=== PATIENT | female | born 2005 ===

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

== ENCOUNTER 2025-02-08 15:51 | Emergency (ER) | payer MEDICAID, SELFPAY ==
--- NOTE | ~2025-02-08 | XR_ITS ---
EXAMINATION: XR CHEST CLINICAL INFORMATION: chest pain, choking episodes COMPARISON: None available. TECHNIQUE: 2 views of the chest were obtained. FINDINGS: No significant abnormality is noted involving the heart, lungs, mediastinum, bony thorax or soft tissues. XR/XR chest 2V IMPRESSION: No acute disease Electronically signed by: Isidoro Kraus MD 02/08/2025 04:49 PM EDT RP
[2025-02-08 16:15] VITALS: BP 108/63; PULSE 89; RESP 16; TEMP 36.2; O2SAT 99; BMI 19.7
--- NOTE | 2025-02-08 16:17 | ED.GENADULT ---
[facility] - General Adult General Chief complaint: Chest Pain Stated complaint: Dizziness, sent from urgent care Time Seen by Provider: 02/08/25 19:14 Source: patient Mode of arrival: ambulatory Limitations: no limitations History of Present Illness ED Provider: Dr. Florez [facility] narrative: This is a 13-year-old female presented hospital today for evaluation of episode of facial numbness and choking on her saliva this previous week. She then began to have chest pain at work. We will dizziness and vertiginous symptoms. Denies any nausea or vomiting denies any recent illness denies any vomiting or diarrhea. Denies any coughing. Patient stated that she was at work today where they sent her to urgent care and urgent care sent her here for evaluation. Related Data Home Medications ?Medication ?Instructions ?Recorded ?Confirmed No Known Home Meds 04/30/24 04/30/24 Allergies Allergy/AdvReac Type Severity Reaction Status Date / Time No Known Allergies (No Known Allergy Verified 02/08/25 16:19 Allergies*) Review of Systems Review of Systems: Pertinent review of systems as mentioned in [facility]. All other system otherwise negative. 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 Bilateral sensation intact bilaterally, strength intact bilaterally, no sign of ataxia on [id number]. Skin: Warm and dry Psychiatric: Appropriate mood and thoughts Vital Signs: Vital Signs - 24 hr 02/08/25 16:15 Temperature 97.1 F Pulse Rate 89 Respiratory Rate 16 Blood Pressure 108/63 Pulse Oximetry 99 Oxygen Delivery Method Room Air BMI result Body Mass Index 19.7 Course Course Course Narrative: Rapid medical examination performed in triage by Li Benitez PA-C. Patient is a 19 year old assigned female at presenting to the emergency department after episodes of choking. Patient states that she has woken up twice in the last 1 week with choking and facial numbness. Detailed physical exam and review of systems are deferred to the orthotic/prosthetic clinician. EKG and labs ordered. Patient placed back in the waiting room pending room availability and results. Medical Decision Making Medical Decision Making [facility] Narrative: This is a 19-year-old female presented hospital today for episodes of facial numbness choking on saliva and chest pain. Patient has NIH score of 0. Do not think this is a stroke. I did discuss with the patient on further workup for D-dimer and perhaps treating her with some GI cocktail to see if her chest pain is from a GI source. However patient has kindly refused and risk score has been to be discharged. Review patient's EKG no sign of STEMI. Patient's troponin is negative. Chest x-ray is unremarkable. Patient has low heart score. Low risk chest pain. Patient will be discharged. Work note will be provided. Differential Diagnosis Differential Diagnoses: The differential diagnosis associated with the presentation includes Gastritis, PE, ACS, CAD, STEMI Lab Data [facility] Lab Attestation statement: I reviewed the patient's lab results. 02/08/25 16:35 02/08/25 16:35 Labs: Lab Results 02/08/25 Range/Units 16:35 WBC 8.1 (4.8-10.8) X10*3/uL RBC 4.36 (4.20-5.50) X10*6/uL Hgb 13.9 (12.0-16.0) g/dl Hct 39.8 (37.0-47.0) % MCV 91.3 (80.0-98.0) fL MCH 31.9 (27.0-33.0) pg MCHC 34.9 (31.0-35.0) g/dl RDW 13.5 (11.0-16.0) % Plt Count 299 (160-400) X10*3/uL MPV 8.1 L (9.4-12.3) fL Immature Gran % (Auto) 0.1 (0.0-0.4) % Neut % (Auto) 52.7 (45-73) % Lymph % (Auto) 34.7 (20-40) % Piute % (Auto) 8.3 (2-11) % Eos % (Auto) 4.0 (0-4) % Baso % (Auto) 0.2 (0-2) % Lymph # (Auto) 2.8 (1.2-4.9) X10*3/uL Piute # (Auto) 0.7 (0.1-1.2) X10*3/uL Eos # (Auto) 0.3 (0.0-0.4) X10*3/uL Baso # (Auto) 0.0 (0.0-0.2) X10*3/uL Abs Immat Gran (auto) 0.01 (0.00-0.03) X10*3/uL Absolute Neuts (auto) 4.2 (2.0-8.3) x10*3/uL Absolute Nucleated RBC 0.000 (0.0-0.012) X10*3/uL Nucleated RBC % (auto) 0.0 (0.0-0.2) /100WBC Sodium 140 (135-145) mmol/L Potassium 3.7 (3.3-5.1) mmol/L Chloride 105 (96-108) mmol/L Carbon Dioxide 25 (22-29) mmol/L Anion Gap 14 (12-20) BUN 13 (9-16) mg/dL Creatinine 0.80 (0.5-1.4) mg/dL Estim Creat Clear Calc 84.2 Estimated GFR > 60 Random Glucose 99 (60-115) mg/dL Calcium 9.6 D (8.4-10.2) mg/dL Magnesium 2.1 (1.6-2.6) mg/dL Total Bilirubin 0.9 (0.0-1.0) mg/dL AST 22 (5-31) U/L ALT 16 (0-31) U/L Alkaline Phosphatase 54 (39-117) U/L Troponin I High Sens < 2.7 (<3.5-17.0) ng/L Total Protein 7.9 (6.5-8.0) g/dL Albumin 4.8 (3.5-5.0) g/dL Beta HCG, Quant < 2 mIU/mL Independent Interpretation I performed an independent interpretation of an: EKG and Plain X-Ray Radiology Impression Discussion of test interpretation with radiology: I have reviewed the radiologist's reading. Discharge Plan Discharge Clinical Impression: Atypical chest pain Patient Disposition: Home, Self-Care Instructions: Chest Pain (ED) Prescriptions: No Action No Known Home Meds Stand Alone Forms: Work/School Release Print Language: Indonesian
--- NOTE | 2025-02-08 16:18 | ECG_ITS ---
Test Reason : CP Blood Pressure : */* mmHG Vent. Rate : 83 BPM Atrial Rate : 83 BPM P-R Int : 130 ms QRS Dur : 70 ms QT Int : 374 ms P-R-T Axes : -86 85 9 degrees QTcB Int : 439 ms Ectopic atrial rhythm Nonspecific T wave abnormality Abnormal ECG When compared with ECG of 24-Nov-2024 10:48, Rhythm change Nonspecific T wave abnormality now evident in Anterolateral leads Referred By: Li Benitez Electronically Signed By: CARLITOS LARSEN
[2025-02-08 16:37] LABS: MANUAL DIFF FLAG NO
[2025-02-08 16:40] LABS: Hematocrit 39.8 % (37.0-47.0); Hemoglobin 13.9 g/dl (12.0-16.0); Imm Gran Abs Auto 0.01 X10*3/uL (0.00-0.03); Imm Gran Pct Auto 0.1 % (0.0-0.4); Lymphocytes Absolute Auto 2.8 X10*3/uL (1.2-4.9); Mean Corpuscular HGB Conc 34.9 g/dl (31.0-35.0); Mean Corpuscular Hemoglobin 31.9 pg (27.0-33.0); Mean Corpuscular Volume 91.3 fL (80.0-98.0); NRBC Abs Auto 0.000 X10*3/uL (0.0-0.012); NRBC Pct Auto 0.0 /100WBC (0.0-0.2); Platelet Count 299 X10*3/uL (160-400); Red Blood Count 4.36 X10*6/uL (4.20-5.50); White Blood Count 8.1 X10*3/uL (4.8-10.8)
[2025-02-08 17:02] LABS: Alanine Aminotransferase 16 U/L (0-31); Albumin Level 4.8 g/dL (3.5-5.0); Alkaline Phosphatase 54 U/L (39-117); Anion Gap 14 (12-20); Aspartate Amino Transferase 22 U/L (5-31); Blood Urea Nitrogen 13 mg/dL (9-16); Calcium 9.6 mg/dL (8.4-10.2); Carbon Dioxide 25 mmol/L (22-29); Chloride 105 mmol/L (96-108); Creatinine Clr Calc Pharmacy 84.2; Estimated Glomerular Filt Rate > 60; Magnesium 2.1 mg/dL (1.6-2.6); Potassium 3.7 mmol/L (3.3-5.1); Sodium 140 mmol/L (135-145); Total Protein 7.9 g/dL (6.5-8.0)
[2025-02-08 17:03] LABS: Troponin-I High Sensitivity < 2.7 ng/L (<3.5-17.0)
--- OUTSIDE RECORDS SUMMARY | 2025-02-08 18:58 | XMS_ITS | Encounter Summary ---
Author Organization [employer] Address [address] [facility] [address] [place] [address] Care Team Providers Care Lime Kiln And Recausticizing Operator Name Role Phone Machelle Johnson MD Primary Care Provider [phone] Reason for Visit * Reason Comments Med Refill Encounter Details Date Type Department Care Team ([facility] st Contact Info) Description 07/17/2024 Refill [facility] [address] [place], [place] [phone] Machelle Johnson MD [address] [place] [address] Social History Tobacco Use Types Packs/Day Years Used Date Smoking Tobacco: Never Passive Smoke Exposure: Never Smokeless Tobacco: Never Alcohol Use Standard Drinks/Week Comments Never 0 [...] Orientation Straight 03/12/2022 10 :18 AM EDT documented as of this encounter Plan of Treatment Not on file documented as of this encounter Visit Diagnoses Not on filedocumented in this encounter Additional Health Concerns Assessment Noted Time PHQ-9 Depression Total Score: 0 06/08/19 25 3:36 PM EST documented as of this encounter Care Teams L[employer] Kil[employer] And Recausticizing Operator Relationship Specialty Start Date End Date Machelle Johnson MD [address] [place] [phone] PCP - General Family Medicine 11/08/21 documented as of this encounter
--- OUTSIDE RECORDS SUMMARY | 2025-02-08 18:58 | XMS_ITS | Encounter Summary ---
Author Organization [employer] Address [address] [facility] [address] [place] [address] Care Team Providers Care Document Analyst Name Role Phone Machelle Johnson MD Primary Care Provider Encounter Details Date Type Department Care Team (Late st Contact Info) Description 02/08/2025 Orders Only GENERIC EXTERNAL DATA DEPARTMENT Provider, Generic External Data Social History Tobacco Use Types Packs/Day Years [...] on file documented as of this encounter Procedures Procedure Name Priority Date/Time Associated Diagnosis Comments XR CHEST 2 VIEWS Routine 02/08/2025 4:40 PM EDT HIGH SENSITIVITY TROPONIN I Routine 02/08/2025 4:35 PM EDT CBC WITH AUTO DIFFERENTIAL Routine 02/08/2025 4:35 PM EDT HCG, TOTAL, QN Routine 02/08/2025 4:35 PM EDT MAGNESIUM Routine 02/08/2025 4:35 PM EDT COMPREHENSIVE METABOLIC PANEL Routine 02/08/2025 4:35 PM EDT documented in this encounter Results * XR Chest 2 Views (02/08/2025 4:40 PM EDT) Anatomical Region Laterality Modality Chest Radiographic Joleen ging 02/08/2025 4:40 PM EDT Narrative 02/08/2025 4:52 PM EDT [address] [address] XRay Report Signed Patient: Irene De Jesus MR#: [id number] : 2005 Acct:[id number] Age/Sex: 19 / F ADM Date: 02/08/25 Loc: .ED Attending Dr: Ordering Physician: Li Benitez Date of Service: 02/08/25 Procedure(s): XR chest 2V Accession Number(s): [id number] cc: Li Benitez; Machelle Johnson Reason for Exam: chest pain, choking episodes EXAMINATION: XR CHEST CLINICAL INFORMATION: chest pain, choking episodes COMPARISON: None available. TECHNIQUE: 2 views of the chest were obtained. FINDINGS: No significant abnormality is noted involving the heart, lungs, mediastinum, bony thorax or soft tissues. XR/XR chest 2V IMPRESSION: No acute disease Electronically signed by: Isidoro Kraus MD 02/08/2025 04:49 PM EDT RP Dictated By: Isidoro Kraus MD Signed By: <Electronically signed by Isidoro Kraus MD in OV> 02/08/25 164 DD/ 1640 TD/TT: 02/08/25 164 Customer Facilities Supervisor: Procedure Note Donotuseinterpreter, Image - 02/08/2025 [place] [address] XRay Report Signed Patient: Irene De Jesus MMR#: [id number] : 2005cct:[id number] Age/Sex: M Date: 02/08/25 Loc: .ED Attending Dr: Ordering Physician: Li Benitez Date of Service: 02/08/25 Procedure(s): XR chest 2V Accession Number(s): [id number] cc: Li Benitez; Machelle Johnson Reason for Exam: chest pain, choking episodes EXAMINATION: XR CHEST CLINICAL INFORMATION: chest pain, choking episodes COMPARISON: None available. TECHNIQUE: 2 views of the chest were obtained. FINDINGS: No significant abnormality is noted involving the heart, lungs, mediastinum, bony thorax or soft tissues. XR/XR chest 2V IMPRESSION: No acute disease Electronically signed by: Isidoro Kraus MD 02/08/2025 04:49 PM EDT RP Dictated By: Isidoro Kraus MD Signed By: <Electronically signed by Isidoro Kraus MD in OV> 02/08/25 1649 DD/ 1640 TD/TT: 02/08/25 1645 Customer Facilities Supervisor: [facility] External Provider IMG XR PROCEDURES Final Result * hCG, Total, Quantitative (02/08/2025 4:35 PM EDT) HCG Quantitative <2 mIU/mL [facility] Comment:Weeks post LMP Appro ximate hCG(Last Menstrual Period) Range (mIU/ml)3 - 4 weeks 9 - 1304 - 5 weeks 75 - 2,6005 - 6 weeks 850 - 20,8006 - 7 weeks 4000 - 100,2007 - 12 weeks 11,500 - 289,46898 - 16 weeks 18,300 - 137,67040 - 29 weeks (2nd trimester) 1,400 - 53,77253 - 41 weeks (3rd trimester) 940 - 60,000The Ramirez B- hCG assay is used for the early detection ofpregnancy; it cannot be used to diagnose any conditionunrelated to . If a B-hCG level is not supportedby the clinical evidence, results should be confirmed by analternative method (qualitative urine hCG, for example). 02/08/2025 4:35 PM EDT 02/08/2025 4:37 PM EDT Generic External Data Provider LAB BLOOD ORDERAB LES Final Result [facility] [address] [place] [phone] * High Sensitivity Troponin I (02/08/2025 4:35 PM EDT) TROPONIN I HIGH SENSITIVITY <2.7 <3.5 - 17.0 ng/L [facility] Comment:The Ramirez high sens itivity Troponin-I results should beused in conjunction with other diagnostic information suchas ECG, clinical observations and information, and patientsymptoms to aid in the diagnosis of MT. 02/08/2025 4:35 PM EDT 02/08/2025 4:37 PM EDT us Generic External Data Provider LAB BLOOD ORDERAB LES Final Result Performing Organization Address City/[facility]/ZIP Co de Phone Number [facility] [address] [place] [address] [phone] * Magnesium (02/08/2025 4:35 PM EDT) Magnesium 2.1 1.6 - 2.6 mg/dL [facility] 02/08/2025 4:35 PM EDT 02/08/2025 4:37 PM EDT Generic External Data Provider LAB BLOOD ORDERAB LES Final Result Performing Organization Address [facility] Co de Phone Number [facility] [address] [place] [address] [phone] * Comprehensive Metabolic Panel (02/08/2025 4:35 PM EDT) Pathologist [facility] Sodium 140 135 - 145 mmol/L [facility] Potassium 3.7 3.3 - 5.1 mmol/L [facility] Chloride 105 96 - 108 mmol/L [facility] Carbon Dioxide 25 22 - 29 mmol/L [facility] Anion Gap 14 12 - 20 [facility] Urea Nitrogen (BUN) 13 9 - 16 mg/dL [facility] Creatinine, Serum 0.80 0.5 - 1.4 mg/dL [facility] Creatinine Clr Calc Pharmacy 84.2 [facility] Comment:Provided height and weight: 154.94 cm,47.2 kg.eGFR (calculated from the MDRD study equation) and eCrCl(calculated from the Cockcroft-Gault equation) are based ondifferent parameters and may not yield comparable results.If eCrCl result is absurd, please check patient'sheight/weight. Estimated Glomerular Filt Rate >60 [facility] Comment:Chronic Kidney Disea se: Estimated GFR < 60 mL/min/1.81d5Ceokcc Kidney Disease: Estimated GFR < 15 mL/min/1.73m2 Glucose 99 60 - 115 mg/dL [facility] Calcium 9.6 8.4 - 10.2 mg/dL [facility] Bilirubin, Total 0.9 0.0 - 1.0 mg/dL [facility] Aspartate Amino Transferase 22 5 - 31 U/L [facility] Alanine Aminotransferase 16 0 - 31 U/L [facility] Total Protein 7.9 6.5 - 8.0 g/dL [facility] Albumin Level 4.8 3.5 - 5.0 g/dL [facility] Alkaline Phosphatase 54 39 - 117 U/L [facility] 02/08/2025 4:35 PM EDT 02/08/2025 4:37 PM EDT us Generic External Data Provider LAB BLOOD ORDERAB LES Final Result [facility] [address] [place] [phone] * (ABNORMAL) CBC auto differential (02/08/2025 4:35 PM EDT) White Blood Count 8.1 4.8 - 10.8 X10*3/uL [facility] Red Blood Count 4.36 4.20 - 5.50 X10*6/uL [facility] Hemoglobin 13.9 12.0 - 16.0 g/dl [facility] Hematocrit 39.8 37.0 - 47.0 % [facility] Mean Corpuscular Volume 91.3 80.0 - 98.0 fL [facility] Mean Corpuscular Hemoglobin 31.9 27.0 - 33.0 pg [facility] Mean Corpuscular HGB Conc 34.9 31.0 - 35.0 g/dl [facility] Red Cell Distribution Width 13.5 11.0 - 16.0 % [facility] Platelet Count 299 160 - 400 X10*3/uL [facility] Mean Platelet Volume 8.1(L) 9.4 - 12.3 fL [facility] Neutrophils Percent Auto 52.7 45 - 73 % [facility] Imm Gran Pct Auto 0.1 0.0 - 0.4 % [facility] Lymphocytes Percent Auto 34.7 20 - 40 % [facility] Monocytes Percent Auto 8.3 2 - 11 % [facility] Eosinophils Percent Auto 4.0 0 - 4 % [facility] Basophils Percent Auto 0.2 0 - 2 % [facility] NRBC Pct Auto 0.0 0.0 - 0.2 /100WBC [facility] Neutrophils Absolute Auto 4.2 2.0 - 8.3 x10*3/uL [facility] Imm Gran Abs Auto 0.01 0.00 - 0.03 X10*3/uL [facility] Lymphocytes Absolute Auto 2.8 1.2 - 4.9 X10*3/uL [facility] Monocytes Absolute Auto 0.7 0.1 - 1.2 X10*3/uL [facility] Eosinophils Absolute Auto 0.3 0.0 - 0.4 X10*3/uL [facility] Basophils Absolute Auto 0.0 0.0 - 0.2 X10*3/uL [facility] NRBC Abs Auto 0.000 0.0 - 0.012 X10*3/uL [facility] 02/08/2025 4:35 PM EDT 02/08/2025 4:37 PM EDT us Generic External Data Provider LAB BLOOD ORDERAB LES Final Result Performing Organization Address City/State/[facility] Co de Phone Number [facility] [address] [place] [address] [phone] documented in this encounter Visit Diagnoses Not on filedocumented in this encounter Additional Health Concerns Assessment Noted Time PHQ-9 Depression Total Score: 0 06/08/19 25 3:36 PM EST documented as of this encounter Care Teams Document Analyst Relationship Specialty Start Date End Date Machelle Johnson MD [address] [place] [phone] PCP - General Family Medicine 11/08/21 documented as of this encounter
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
--- OUTSIDE RECORDS SUMMARY | 2025-02-08 18:58 | XMS_ITS | Encounter Summary ---
Author Organization [employer] Address [address] [place] [address] Care Team Providers Care President [employer] Name Role Phone Machelle Johnson MD Primary Care Provider [phone] Encounter Details Date Type Department Care Team (Late st Contact Info) Description 09/09/2024 Orders Only [facility] [address] [place], [place] [phone] Machelle Johnson MD [address] [place], [place] [phone] Social History Tobacco Use Types Packs/Day Years [...] Name Priority Date/Time Associated Diagnosis Comments XR FOOT 1-2 VIEWS RIGHT Routine 09/15/2024 9:45 PM EDT documented in this encounter Results * XR Foot 1-2 Views Right (09/15/2024 9:45 PM EDT) Anatomical Region Laterality Modality Lower Extremities, Foot Right [facility] 09/15/2024 9:45 PM EDT Narrative 09/15/2024 9:47 PM EDT [place] [address] XRay Report Signed Patient: Irene De Jesus MR#: [id number] : 2005 Acct:[id number] Age/Sex: 19 / F ADM Date: 09/15/24 Loc: HO.ED Attending Dr: Ordering Physician: Generic ED Physician Date of Service: 09/15/24 Procedure(s): XR foot RT 2V Accession Number(s): [id number] cc: Generic ED Physician; Machelle Johnson CLINICAL [...] in OV> 09/15/242145 DD/ 44 TD/TT: 09/15/242144 Maintenance Team Leader: Procedure Note Rowdy, Image - 09/15/[address] [address] XRay Report Signed Patient: Irene De Jesus MMR#: [id number] : 2005cct:[id number] Age/Sex: 19 / FADM Date: 09/15/24 Loc: HO.ED Attending Dr: Ordering Physician: Generic ED Physician Date of Service: 09/15/24 Procedure(s): XR foot RT 2V Accession Number(s): [id number] cc: Generic ED Physician; Machelle Johnson CLINICAL [...] in OV> 09/15/242145 DD/ 44 TD/TT: 09/15/242144 Maintenance Team Leader: [facility] External Provider IMG XR PROCEDURES Edited Result - Final documented in this encounter Visit Diagnoses Not on filedocumented in this encounter Additional Health Concerns Assessment Noted Time PHQ-9 Depression Total Score: 0 06/08/19 25 3:36 PM EST documented as of this encounter Care Teams President [employer] Relationship Specialty Start Date End Date Machelle Johnson MD [address] [place] [address] PCP - General Family Medicine 11/08/21 documented as of this encounter
== END 2025-02-08 21:04 | disposition home or self-care (01) ==
PROVIDERS: Physician Assistant Medical; Emergency Provider Student in an Organized Health Care Education/Training Program; PCP General Practice
DX: R07.89 Other chest pain (principal); R42 Dizziness and giddiness; R20.0 Anesthesia of skin; Z79.899 Other long term (current) drug therapy
CPT/HCPCS: 36415; 71046; 80053; 83735; 84484; 84702; 85025; 93005; 99283

== ENCOUNTER → 2025-02-08 16:18 | Outpatient (BNV) | payer MEDICAID, SELFPAY | PROVIDERS: Emergency Provider Student in an Organized Health Care Education/Training Program; PCP General Practice; Visit Provider Internal Medicine | DX: R94.31 Abnormal electrocardiogram [ECG] [EKG] (principal); R07.9 Chest pain, unspecified | CPT/HCPCS: 93010 ==

== ENCOUNTER → 2025-02-08 16:18 | Outpatient (BNV) | payer MEDICAID, SELFPAY | PROVIDERS: PCP General Practice; Visit Provider Radiology Diagnostic Radiology | DX: R07.9 Chest pain, unspecified (principal); R09.89 Other specified symptoms and signs involving the circulatory and respiratory systems | CPT/HCPCS: 71046 ==

== ENCOUNTER 2025-03-02 19:15 | Emergency (ER) | payer MEDICAID, SELFPAY ==
--- NOTE | 2025-03-02 | ECG_ITS ---
Test Reason : cp Blood Pressure : */* mmHG Vent. Rate : 149 BPM Atrial Rate : 149 BPM P-R Int : 68 ms QRS Dur : 60 ms QT Int : 322 ms P-R-T Axes : 68 87 -12 degrees QTcB Int : 507 ms Sinus tachycardia with short TX Anterior infarct , age undetermined T wave abnormality, consider inferolateral ischemia Abnormal ECG When compared with ECG of 08-Feb-2025 16:26, Sinus rhythm has replaced Unusual P axis, possible ectopic atrial rhythm Vent. rate has increased by 66 bpm Inverted T waves have replaced nonspecific T wave abnormality in Anterolateral leads Referred By: Generic ED Physician Electronically Signed By: MEREDITH SANCHEZ MD
--- NOTE | ~2025-03-02 | XR_ITS ---
CLINICAL HISTORY: pain 2 view chest x-ray Comparison: CR/SR - XR CHEST 2 VIEWS - 02/08/25 16:50 EDT Findings: No consolidation or effusion. Normal size heart. No acute fracture. IMPRESSION: 1. No acute findings. This document has been electronically signed by: Angelo García MD on 03/02/2025 20:46:21
--- NOTE | ~2025-03-02 | CT_ITS ---
CLINICAL HISTORY: Pleuritic chest pain, tachycardia, elevated D-dime --- Additional Notes or Special Instructions: R O PE CT angiography chest with contrast. 3D Postprocessing. Comparison: None provided Findings: The heart size is normal. RV/LV ratio is normal. Unremarkable thoracic aorta and great vessels. No aneurysm. No pulmonary artery filling defects. The visualized thyroid and mediastinum are unremarkable. The lungs are clear. The upper abdomen is unremarkable. No acute fractures. IMPRESSION: 1. No pulmonary embolus. This document has been electronically signed by: Lorenzo Damico MD on 03/02/2025 21:58:36
[2025-03-02 19:25] VITALS: BP 126/74; PULSE 152; RESP 18; TEMP 38.1; O2SAT 100
--- NOTE | 2025-03-02 19:28 | ED_ITS ---
HPI - Chest Pain General Chief Complaint: Chest Pain Stated Complaint: Chest pain/headache/hx cardiac arrest/seizures Time Seen by Provider: 03/02/25 19:28 Source: patient Mode of arrival: ambulatory Limitations: no limitations History of Present Illness ED Provider: Dr. Fernando Kay HPI narrative: 19-year-old female with a history of asthma who presents emergency department for evaluation of chest pain, shortness of breath, dyspnea on exertion, dizziness, feeling hot and cold and weakness. Patient states that her symptoms started this morning and got worse at around 15:00 hours. The patient is complaining of 10/10 substernal chest pressure worse with breathing, associated with shortness of breath and dyspnea on exertion. She also states she feels like she is going to pass out secondary to dizziness. She states that her legs feel very weak as well. She has felt hot and cold at home. She states she used her albuterol inhaler twice with no relief of her symptoms. Patient denies any recent long trips. She has had no swelling of her lower extremities. She is not on control pills. Related Data Previous Rx's ?Medication ?Instructions ?Recorded ibuprofen 100 mg/5 mL oral 400 mg (20 mL) PO Q8H PRN f ever or 03/03/25 suspension (Children's Ibuprofen) pain #473 mL Allergies Allergy/AdvReac Type Severity Reaction Status Date / Time strawberry Allergy Unknown Verified 03/02/25 19:27 Review of Systems 2 Review of Systems: Yes all other systems are reviewed and are negative [facility] Past Medical History [facility] Narrative: Social history: She denies tobacco, alcohol and drug use. 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 Exam: General: Awake, alert in no distress Head: Normocephalic, atraumatic EENT: PERRL, sclera and conjunctiva are normal, mouth with no erythema or exudates Neck: Supple, no adenopathy Lung: breath sounds symmetric, no wheezing, no rales and no rhonchi Chest: symmetric movement, sternal tenderness Heart: tachycardia with a regular rhythm, normal S1, S2 no murmurs or rubs Abdomen: soft, non-tender, nondistended, normal bowel sounds Back: no vertebral tenderness, no CVAT Extremities: no deformities, moves all extremities symmetrically, no edema Neuro: Awake, alert, oriented, normal speech, cranial nerves 2-12 intact, moves all extremities symmetrically Psych: Pleasant, cooperative Course Course Course Narrative: RME, this is a rapid medical exam performed by Cheko Colvin please refer to primary provider for complete H&P- 19-year-old female presents for evaluation of chest pain and feeling unwell. She is tachycardic to 149 over EKG. This is sinus tachycardia. She is also febrile to 100.6. Plan for cardiac workup as well as blood cultures. Medications Administered Discontinued Medications Generic Name Dose Route Start Last Admin Trade Name Shun PRN Reason Stop Dose Admin Acetaminophen 975 mg 03/02/25 20:26 03/02/25 21:06 Acetaminophen 325 Mg Tablet PO 03/02/25 20:27 Not Given ONCE STA Sodium Chloride 1,000 mls @ 999 mls/hr 03/02/25 20:26 03/02/25 22:06 Ns IV 03/02/25 21:26 Infused .Q1H1M STA Infusion Sodium Chloride 1,000 mls @ 999 mls/hr 03/02/25 23:04 03/02/25 23:29 Ns IV 03/03/25 00:04 999 mls/hr .Q1H1M STA Administration Iohexol 65 ml 03/02/25 21:23 03/02/25 21:24 Iohexol 350 Mg/Ml 100 Ml Infus..Btl IV 03/02/25 21:24 65 ml ONCE ONE Administration Ketorolac Tromethamine 15 mg 03/02/25 20:26 03/02/25 20:43 Ketorolac Tromethamine 15 Mg/Ml Vial IVPUSH 03/02/25 20:27 15 mg ONCE STA Administration Morphine Sulfate 4 mg 03/02/25 23:04 03/02/25 23:29 Morphine Sulfate 4 Mg/Ml Cartridge IVPUSH 03/02/25 23:05 4 mg ONCE STA Administration Protocol Ondansetron HCl 4 mg 03/02/25 20:26 03/02/25 20:42 Ondansetron Hcl 4 Mg/2 Ml Vial IVPUSH 03/02/25 20:27 4 mg ONCE ONE Administration Medical Decision Making Medical Decision Making MDM Narrative: 19-year-old female with a history of asthma who presents emergency department for evaluation of chest pain, shortness of breath, dyspnea on exertion, dizziness, feeling hot and cold and weakness. Patient states that her symptoms started this morning and got worse at around 15:00 hours. The patient is complaining of 10/10 substernal chest pressure worse with breathing, associated with shortness of breath and dyspnea on exertion. She also states she feels like she is going to pass out secondary to dizziness. She states that her legs feel very weak as well. She has felt hot and cold at home. She states she used her albuterol inhaler twice with no relief of her symptoms. Patient denies any recent long trips. She has had no swelling of her lower extremities. She is not on control pills. Vital signs revealed elevated heart rate, elevated temperature, normal respiratory rate normal O2 saturation. Exam was otherwise unremarkable Differential diagnosis: ?Includes but is not limited to viral syndrome, COVID- 19, influenza, pneumonia, pulmonary embolism, myocardial infarction, myocardial ischemia, pericarditis, costochondritis, anemia, electrolyte abnormality Course: My interpretation patient's laboratory evaluation is as follows: WBC elevated 12,400. Troponin below detectable limits. Lactic acid normal 1.5. D-dimer elevated 265. NT-Pro BNP less than 15.8. COVID-19, influenza were negative. Given the pleuritic chest pain, dyspnea, shortness of breath and elevated D- dimer, concerned the patient may have a pulmonary embolism therefore I ordered a CT pulmonary angiogram PE protocol. Patient was also ordered to get normal saline IV x1 L, Toradol 15 mg IV for her chest pain, Zofran 4 mg IV for nausea and Tylenol 975 mg orally for fever. 23:[address] pulmonary angiogram PE protocol did not reveal any evidence for blood clot or other acute findings to explain the patient's chest pain. Patient states that she got no relief with the Toradol but her nausea has resolved after receiving in his Zofran. The the patient is still tachycardic. Therefore I ordered morphine 4 mg IV and a 2 L of normal saline IV. Patient most likely has a viral illness as the cause of her symptoms and I did discuss this with her. 01:52 The patient's chest pain improved slightly after the above treatment therefore I ordered a 2nd dose of morphine 4 mg IV. Patient's tachycardia did improve after the 2 L of normal saline. Patient most likely has a viral infection and I did discuss this with her. Patient can not take pills therefore she was prescribed children's ibuprofen 400 mg every 8 hours as needed for pain or fever. She was given printed and verbal instructions and discharged home. Differential Diagnosis Differential Diagnoses: The differential diagnosis associated with the presentation includes (See above) Admission/Observation Consideration of admission/observation: Escalation of care including admission/observation considered (Yes) Lab Data MDM Lab Attestation statement: I reviewed the patient's lab results. 03/02/25 19:54 03/02/25 20:37 Labs: Lab Results 03/02/25 03/02/25 03/02/25 Range/Units 19:49 19:54 20:37 WBC 21.4 H (4.8-10.8) X10*3/uL RBC 4.46 (4.20-5.50) X10*6/uL Hgb 14.0 (12.0-16.0) g/dl Hct 40.9 (37.0-47.0) % MCV 91.7 (80.0-98.0) fL MCH 31.4 (27.0-33.0) pg MCHC 34.2 (31.0-35.0) g/dl RDW 12.7 (11.0-16.0) % Plt Count 381 D (160-400) X10*3/uL MPV 8.2 L (9.4-12.3) fL Immature Gran % (Auto) 0.4 (0.0-0.4) % Neut % (Auto) 84.8 H (45-73) % Lymph % (Auto) 8.6 L (20-40) % Taylor % (Auto) 5.9 (2-11) % Eos % (Auto) 0.1 (0-4) % Baso % (Auto) 0.2 (0-2) % Lymph # (Auto) 1.9 (1.2-4.9) X10*3/uL Taylor # (Auto) 1.3 H (0.1-1.2) X10*3/uL Eos # (Auto) 0.0 (0.0-0.4) X10*3/uL Baso # (Auto) 0.0 (0.0-0.2) X10*3/uL Abs Immat Gran (auto) 0.09 H (0.00-0.03) X10*3/uL Absolute Neuts (auto) 18.2 H (2.0-8.3) x10*3/uL Absolute Nucleated RBC 0.000 (0.0-0.012) X10*3/uL Nucleated RBC % (auto) 0.0 (0.0-0.2) /100WBC D-Dimer High Sensitivty 265 NG/ML Sodium 138 (135-145) mmol/L Potassium 3.6 (3.3-5.1) mmol/L Chloride 106 (96-108) mmol/L Carbon Dioxide 24 (22-29) mmol/L Anion Gap 12 (12-20) BUN 10 (9-16) mg/dL Creatinine 0.65 (0.5-1.4) mg/dL Estim Creat Clear Calc 102.9 Estimated GFR > 60 Random Glucose 94 (60-115) mg/dL Lactic Acid 1.5 (0.5-2.0) mmol/L Calcium 9.1 (8.4-10.2) mg/dL Magnesium 1.7 (1.6-2.6) mg/dL Total Bilirubin 0.5 (0.0-1.0) mg/dL AST 20 (5-31) U/L ALT 7 (0-31) U/L Alkaline Phosphatase 54 (39-117) U/L Troponin I High Sens < 2.7 (<3.5-17.0) ng/L NT-Pro-B Natriuret Pep < 15.8 (<300) pg/mL Total Protein 7.7 (6.5-8.0) g/dL Albumin 4.7 (3.5-5.0) g/dL Lipase 12 (8-78) U/L Beta HCG, Quant Cancelled < 2 Urine Color Urine Appearance Urine pH (5.0-9.0) Ur Specific [place] (1.005-1.025) Urine Protein (Neg-Trace) mg/dL Urine Glucose (UA) (Negative) mg/dL Urine Ketones (Negative) mg/dL Urine Blood (Negative) Urine Nitrite (Negative) Ur Leukocyte Esterase (Negative) Urine RBC (0-2) /HPF Urine WBC (0-5) /HPF Ur Squamous Epith Cells (0-2) /HPF Urine Bacteria (None Seen) Hyaline Casts (0-2) /LPF Urine Opiates Screen (Not Detect) Ur Buprenorphine Scrn (Not Detect) ng/mL Ur Oxycodone Screen (Not Detect) ng/mL Urine Methadone Screen (Not Detect) ng/mL Urine Fentanyl Screen (Not Detect) Ur Barbiturates Screen (Not Detect) Ur Phencyclidine Scrn (Not Detect) Ur Amphetamines Screen (Not Detect) U Benzodiazepines Scrn (Not Detect) Urine Cocaine Screen (Not Detect) U Marijuana (THC) Screen (Not Detect) Ethyl Alcohol Cancelled < 10 COVID-19 (JULI) Negative (Negative) COVID-19 Clin Com See Note Influenza Type A (WEN) Negative (Negative) Influenza Type B (WEN) Negative (Negative) Influenza A & B Note See Note 03/02/25 Range/Units 21:37 WBC (4.8-10.8) X10*3/uL RBC (4.20-5.50) X10*6/uL Hgb (12.0-16.0) g/dl Hct (37.0-47.0) % MCV (80.0-98.0) fL MCH (27.0-33.0) pg MCHC (31.0-35.0) g/dl RDW (11.0-16.0) % Plt Count (160-400) X10*3/uL MPV (9.4-12.3) fL Immature Gran % (Auto) (0.0-0.4) % Neut % (Auto) (45-73) % Lymph % (Auto) (20-40) % Taylor % (Auto) (2-11) % Eos % (Auto) (0-4) % Baso % (Auto) (0-2) % Lymph # (Auto) (1.2-4.9) X10*3/uL Taylor # (Auto) (0.1-1.2) X10*3/uL Eos # (Auto) (0.0-0.4) X10*3/uL Baso # (Auto) (0.0-0.2) X10*3/uL Abs Immat Gran (auto) (0.00-0.03) X10*3/uL Absolute Neuts (auto) (2.0-8.3) x10*3/uL Absolute Nucleated RBC (0.0-0.012) X10*3/uL Nucleated RBC % (auto) (0.0-0.2) /100WBC D-Dimer High Sensitivty NG/ML Sodium (135-145) mmol/L Potassium (3.3-5.1) mmol/L Chloride (96-108) mmol/L Carbon Dioxide (22-29) mmol/L Anion Gap (12-20) BUN (9-16) mg/dL Creatinine (0.5-1.4) mg/dL Estim Creat Clear Calc Estimated GFR Random Glucose (60-115) mg/dL Lactic Acid (0.5-2.0) mmol/L Calcium (8.4-10.2) mg/dL Magnesium (1.6-2.6) mg/dL Total Bilirubin (0.0-1.0) mg/dL AST (5-31) U/L ALT (0-31) U/L Alkaline Phosphatase (39-117) U/L Troponin I High Sens (<3.5-17.0) ng/L NT-Pro-B Natriuret Pep (<300) pg/mL Total Protein (6.5-8.0) g/dL Albumin (3.5-5.0) g/dL Lipase (8-78) U/L Beta HCG, Quant Urine Color Yellow Urine Appearance Clear Urine pH 6.5 (5.0-9.0) Ur Specific [place] >= 1.030 H (1.005-1.025) Urine Protein Negative (Neg-Trace) mg/dL Urine Glucose (UA) Negative (Negative) mg/dL Urine Ketones Negative (Negative) mg/dL Urine Blood Negative (Negative) Urine Nitrite Negative (Negative) Ur Leukocyte Esterase Negative (Negative) Urine RBC 0-2 (0-2) /HPF Urine WBC 0-5 (0-5) /HPF Ur Squamous Epith Cells 6-10 (0-2) /HPF Urine Bacteria 2+ (None Seen) Hyaline Casts 0-2 (0-2) /LPF Urine Opiates Screen Not Detected (Not Detect) Ur Buprenorphine Scrn Not Detected (Not Detect) ng/mL Ur Oxycodone Screen Not Detected (Not Detect) ng/mL Urine Methadone Screen Not Detected (Not Detect) ng/mL Urine Fentanyl Screen Not Detected (Not Detect) Ur Barbiturates Screen Not Detected (Not Detect) Ur Phencyclidine Scrn Not Detected (Not Detect) Ur Amphetamines Screen Not Detected (Not Detect) U Benzodiazepines Scrn Not Detected (Not Detect) Urine Cocaine Screen Not Detected (Not Detect) U Marijuana (THC) Screen Not Detected (Not Detect) Ethyl Alcohol COVID-19 (JULI) (Negative) COVID-19 Clin Com Influenza Type A (WEN) (Negative) Influenza Type B (WEN) (Negative) Influenza A & B Note Independent Interpretation I performed an independent interpretation of an: EKG and Plain X-Ray Interpretation: My independent interpretation patient's 12 EKG done on 03/02/2025 at 19:19 hours is as follows: Sinus tachycardia with a rate of 149, normal CO interval and QRS duration. Prolonged QTC interval of 507 milliseconds. Less than [address] segment depression leads 2, 3, AVF, V4 through V6 with inverted T-waves in these leads as well. The patient has poor R-wave progression V1 through V3. No CO depression. My independent interpretation patient's two view chest x-ray is as follows: No acute disease. Radiology Impression Discussion of test interpretation with radiology: I have reviewed the radiologist's reading. Radiologist Impression: 2 view chest x-ray Comparison: CR/SR - XR CHEST 2 VIEWS - 02/08/25 16:50 EDT Findings: No consolidation or effusion. Normal size heart. No acute fracture. IMPRESSION: 1. No acute findings. This document has been electronically signed by: Angelo García MD on 03/02/2025 20:46:21 CT angiography chest with contrast. 3D Postprocessing. Comparison: None provided Findings: The heart size is normal. RV/LV ratio is normal. Unremarkable thoracic aorta and great vessels. No aneurysm. No pulmonary artery filling defects. The visualized thyroid and mediastinum are unremarkable. The lungs are clear. The upper abdomen is unremarkable. No acute fractures. IMPRESSION: 1. No pulmonary embolus. This document has been electronically signed by: Lorenzo Damico MD on 03/02/2025 21:58:36 Independent Historian Clinical information obtained from an independent historian. History obtained from or confirmed by: Friend Chronic Conditions Patient?s care impacted by: Other (Asthma) Critical Care Time Critical Care Time Critical Care Time: Yes Total Critical Care Time: 45 Attestation: Critical Care: The patient was critically ill with a high probability of imminent or life threatening deterioration. I spent greater than 30 minutes of discontinuous time evaluating the patient,delivering critical care at the bedside, discussing and evaluating pertinent data with consultants. Critical care time does not include time spent performing separately billable procedures or teaching. Total time spent performing critical care was 45 minutes. Discharge Plan Discharge Clinical Impression: Viral syndrome, Fever, Chest pain Patient Disposition: Home, Self-Care Instructions: Chest Pain (ED), Viral Syndrome (ED) Additional Instructions: Your blood work revealed an elevated white blood cell count otherwise was unremarkable. Your COVID 19 and influenza tests were normal. Your chest x-ray did not reveal any signs of pneumonia. Your CT pulmonary angiogram of your chest did not reveal any pneumonia or blood clots in your lungs which were reassuring. At this time, I suspect that you have a virus that has making you sick. Viruses can give us pain, fever, chills and weakness and can sometimes last 2-4 weeks. Take Children's ibuprofen 100 mg per 5 mL, 20 mL every 6 hours as needed for pain or fever. Increase your fluid intake to prevent dehydration. Take your medications as prescribed by your providers. Follow-up with your doctor in 2 days. Please return to the emergency department if your symptoms get worse or if you develop any symptoms that are concerning to you. Prescriptions: New ibuprofen [Children's Ibuprofen] 100 mg/5 mL suspension 400 mg PO Q8H PRN (Reason: fever or pain) Qty: 473 0RF Print Language: Ivorian
[2025-03-02 19:35] VITALS: BMI 19.5
[2025-03-02 19:57] VITALS: BP 131/85; PULSE 139; RESP 15; TEMP 37.5; O2SAT 100
[2025-03-02 19:59] LABS: MANUAL DIFF FLAG NO
[2025-03-02 20:01] LABS: Hematocrit 40.9 % (37.0-47.0); Hemoglobin 14.0 g/dl (12.0-16.0); Imm Gran Abs Auto 0.09 X10*3/uL (0.00-0.03); Imm Gran Pct Auto 0.4 % (0.0-0.4); Lymphocytes Absolute Auto 1.9 X10*3/uL (1.2-4.9); Mean Corpuscular HGB Conc 34.2 g/dl (31.0-35.0); Mean Corpuscular Hemoglobin 31.4 pg (27.0-33.0); Mean Corpuscular Volume 91.7 fL (80.0-98.0); NRBC Abs Auto 0.000 X10*3/uL (0.0-0.012); NRBC Pct Auto 0.0 /100WBC (0.0-0.2); Platelet Count 381 X10*3/uL (160-400); Red Blood Count 4.46 X10*6/uL (4.20-5.50); White Blood Count 21.4 X10*3/uL (4.8-10.8)
[2025-03-02 20:09] LABS: COVID-19 Test Negative (Negative); IDNOW Serial# 58CA691E; IDNOW Serial# 6674DD1D; Influenza B2 Negative (Negative)
[2025-03-02 20:13] LABS: D Dimer High Sensitivity 265 NG/ML
[2025-03-02 20:19] LABS: NT Pro B Type Natriuretic Pept < 15.8 pg/mL (<300); Troponin-I High Sensitivity < 2.7 ng/L (<3.5-17.0)
[2025-03-02 21:07] LABS: Alanine Aminotransferase 7 U/L (0-31); Albumin Level 4.7 g/dL (3.5-5.0); Alkaline Phosphatase 54 U/L (39-117); Anion Gap 12 (12-20); Aspartate Amino Transferase 20 U/L (5-31); Blood Urea Nitrogen 10 mg/dL (9-16); Calcium 9.1 mg/dL (8.4-10.2); Carbon Dioxide 24 mmol/L (22-29); Chloride 106 mmol/L (96-108); Creatinine Clr Calc Pharmacy 102.9; Estimated Glomerular Filt Rate > 60; Lipase 12 U/L (8-78); Magnesium 1.7 mg/dL (1.6-2.6); Potassium 3.6 mmol/L (3.3-5.1); Sodium 138 mmol/L (135-145); Total Protein 7.7 g/dL (6.5-8.0)
--- NOTE | 2025-03-02 21:09 | PC.NURSE ---
MD aware of pt's vitals & WBCs. Pt noted to meet SIRS criteria, per provider no ABX needed at this time.
[2025-03-02] MEDS: iohexoL 350 MG/ML 100 ML INFUS..BTL 65 ML IV (21:24)
[2025-03-02 21:42] LABS: Appearance Urine Clear; Glucose Urine UA Negative (Negative); PH 6.5 (5.0-9.0); Specific Gravity - Urine >= 1.030 (1.005-1.025)
[2025-03-02 21:52] LABS: Cannabinoid Screen Urine Not Detected (Not Detect)
[2025-03-02 22:09] VITALS: BP 100/57; PULSE 127; RESP 18; TEMP 37.5; O2SAT 96
[2025-03-03 00:39] VITALS: BP 94/51; PULSE 101; RESP 19; TEMP 36.8; O2SAT 95
[2025-03-03 01:58] VITALS: BP 97/45; PULSE 105; RESP 13; TEMP 36.8; O2SAT 97
[2025-03-03 02:24] VITALS: BP 96/45; PULSE 99; RESP 19; TEMP 36.7; O2SAT 99
[2025-03-03 02:33] VITALS: BP 96/45; PULSE 99; RESP 19; TEMP 36.7; O2SAT 99
== END 2025-03-03 02:55 | disposition home or self-care (01) ==
PROVIDERS: Physician Assistant; Emergency Provider Emergency Medicine Emergency Medical Services; PCP General Practice
DX: B34.9 Viral infection, unspecified (principal); R07.89 Other chest pain; R51.9 Headache, unspecified; R56.9 Unspecified convulsions; R11.0 Nausea; R06.02 Shortness of breath; Z11.52 Encounter for screening for COVID-19; Z51.81 Encounter for therapeutic drug level monitoring; Z79.899 Other long term (current) drug therapy
CPT/HCPCS: 36415; 71046; 71275; 74018; 80053; 80307; 81001; 83605; 83690; 83735; 83880; 84484; 84702; 85025; 85379; 87040; 87502; 87635; 93005; 96361; 96374; 96375; 96376; 99283; 99285; J1885; J2270; J2405; Q9967

== ENCOUNTER → 2025-03-02 19:19 | Outpatient (BNV) | payer MEDICAID, SELFPAY | PROVIDERS: Emergency Provider Emergency Medicine Emergency Medical Services; PCP General Practice; Visit Provider Internal Medicine Cardiovascular Disease | DX: R00.0 Tachycardia, unspecified (principal) | CPT/HCPCS: 93010 ==

== ENCOUNTER → 2025-03-02 19:28 | Outpatient (BNV) | payer MEDICAID, SELFPAY | PROVIDERS: Emergency Provider Emergency Medicine Emergency Medical Services; PCP General Practice; Visit Provider Radiology Diagnostic Radiology | DX: R07.1 Chest pain on breathing (principal); R00.0 Tachycardia, unspecified; R79.1 Abnormal coagulation profile; R07.9 Chest pain, unspecified | CPT/HCPCS: 71046; 71275 ==

== ENCOUNTER 2025-03-03 20:15 | Emergency (ER) | payer MEDICAID, SELFPAY ==
--- NOTE | 2025-03-03 | ECG_ITS ---
Test Reason : CP Blood Pressure : */* mmHG Vent. Rate : 83 BPM Atrial Rate : 83 BPM P-R Int : 130 ms QRS Dur : 60 ms QT Int : 342 ms P-R-T Axes : 70 81 -12 degrees QTcB Int : 401 ms Normal sinus rhythm Nonspecific T wave abnormality Abnormal ECG When compared with ECG of 02-Mar-2025 19:19, CT interval has increased Vent. rate has decreased by 66 bpm Nonspecific T wave abnormality has replaced inverted T waves in Anterolateral leads Referred By: Generic ED Physician Electronically Signed By: MEREDITH SANCHEZ MD
--- NOTE | ~2025-03-03 | XR_ITS ---
CLINICAL HISTORY: pain constipation? 1 view abdomen Comparison: None provided Findings: Moderate stool burden. No bowel obstruction. No pneumoperitoneum or pneumatosis. No abnormal calcifications. No acute fractures. IMPRESSION: Moderate stool burden. No bowel obstruction. This document has been electronically signed by: Sarah Beth Buck MD on 03/04/2025 00:08:07
[2025-03-03 20:22] VITALS: BP 112/72; PULSE 95; RESP 20; TEMP 36.3; O2SAT 100; BMI 20.8
[2025-03-03 20:55] LABS: MANUAL DIFF FLAG NO
[2025-03-03 20:56] LABS: Hematocrit 34.3 % (37.0-47.0); Hemoglobin 11.5 g/dl (12.0-16.0); Imm Gran Abs Auto 0.04 X10*3/uL (0.00-0.03); Imm Gran Pct Auto 0.4 % (0.0-0.4); Lymphocytes Absolute Auto 3.0 X10*3/uL (1.2-4.9); Mean Corpuscular HGB Conc 33.5 g/dl (31.0-35.0); Mean Corpuscular Hemoglobin 31.0 pg (27.0-33.0); Mean Corpuscular Volume 92.5 fL (80.0-98.0); NRBC Abs Auto 0.000 X10*3/uL (0.0-0.012); NRBC Pct Auto 0.0 /100WBC (0.0-0.2); Platelet Count 321 X10*3/uL (160-400); Red Blood Count 3.71 X10*6/uL (4.20-5.50); White Blood Count 11.3 X10*3/uL (4.8-10.8)
[2025-03-03 21:11] LABS: Alanine Aminotransferase 8 U/L (0-31); Albumin Level 4.0 g/dL (3.5-5.0); Alkaline Phosphatase 48 U/L (39-117); Anion Gap 12 (12-20); Aspartate Amino Transferase 17 U/L (5-31); Blood Urea Nitrogen 10 mg/dL (9-16); Calcium 8.4 mg/dL (8.4-10.2); Carbon Dioxide 28 mmol/L (22-29); Chloride 108 mmol/L (96-108); Creatinine Clr Calc Pharmacy 94.8; Estimated Glomerular Filt Rate > 60; Potassium 3.6 mmol/L (3.3-5.1); Sodium 144 mmol/L (135-145); Total Protein 6.7 g/dL (6.5-8.0)
[2025-03-03 21:20] LABS: Troponin-I High Sensitivity < 2.7 ng/L (<3.5-17.0)
--- OUTSIDE RECORDS SUMMARY | 2025-03-03 23:43 | XMS_ITS | Encounter Summary ---
Author Organization [employer] Address [address] [place] [address] Care Team Providers Care Wheel Adjuster Name Role Phone Machelle Johnson MD Primary Care Provider [phone] Encounter Details Date Type Department Care Team (Late st Contact Info) Description 09/09/2024 Orders Only [facility] MEDICINE [address] [place], [place] [phone] Machelle Johnson MD [address] [place], [place] [phone] Social History Tobacco Use Types Packs/Day Years [...] Laterality Modality Lower Extremities, Foot Right [facility] Imaging 09/15/2024 9:45 PM EDT Narrative 09/15/2024 9:47 PM EDT [place] [address] XRay Report Signed Patient: Irene De Jesus MR#: [id number] : 2005 Acct:[id number] Age/Sex: 19 / F ADM Date: 09/15/24 Loc: HO.ED Attending Dr: Ordering Physician: Generic ED Physician Date of Service: 09/15/24 Procedure(s): XR foot RT 2V Accession Number(s): [id number] cc: Generic ED Physician; Machelle Johnson CLINICAL [...] in OV> 09/15/242145 DD/ 44 TD/TT: 09/15/242144 Progress Developer: Procedure Note Rowdy, Image - 09/15/[address] [address] XRay Report Signed Patient: Irene De Jesus MMR#: [id number] : 2005cct:[id number] Age/Sex: 19 / FADM Date: 09/15/24 Loc: HO.ED Attending Dr: Ordering Physician: Generic ED Physician Date of Service: 09/15/24 Procedure(s): XR foot RT 2V Accession Number(s): [id number] cc: Generic ED Physician; Machelle Johnson CLINICAL [...] in OV> 09/15/242145 DD/ 44 TD/TT: 09/15/242144 Progress Developer: [facility] External Provider IMG XR PROCEDURES Edited Result - Final documented in this encounter Visit Diagnoses Not on filedocumented in this encounter Additional Health Concerns Assessment Noted Time PHQ-9 Depression Total Score: 0 06/08/19 25 3:36 PM EST documented as of this encounter Care Teams Wheel Adjuster Relationship Specialty Start Date End Date Machelle Johnson MD [address] [place] [address] PCP - General Family Medicine 11/08/21 documented as of this encounter
--- OUTSIDE RECORDS SUMMARY | 2025-03-03 23:43 | XMS_ITS | Encounter Summary ---
Author Organization [employer] Address [address] [place] [address] Care Team Providers Care Rip Saw Operator Name Role Phone Machelle Johnson MD Primary Care Provider [phone] Reason for Visit * Reason Onset Date Comments Appointment Request 12/17/2022 Encounter Details Date Type Department Care Team ([facility] st Contact Info) Description 12/17/2022 Telephone [facility] MEDICINE [address] [place] [address] Machelle Johnson MD [address] [place] [address] Appointment Request Social History Tobacco Use Types [...] mom requesting a PE appointment for school. Disease Case Manager Rn did not see any availability. Please contact pt mom at [phone] documented in this encounter Plan of Treatment Not on file documented as of this encounter Visit Diagnoses Not on filedocumented in this encounter Care Teams Rip Saw Operator Relationship Specialty Start Date End Date Machelle Johnson MD [address] [place], [place] [phone] PCP - General Family Medicine 11/08/21 documented as of this encounter
--- OUTSIDE RECORDS SUMMARY | 2025-03-03 23:43 | XMS_ITS | Encounter Summary ---
Author Organization [employer] Address [address] [facility] [address] [place] [address] Care Team Providers Care Software Quality Assurance Engineer Name Role Phone Machelle Johnson MD Primary Care Provider [phone] Reason for Visit * Reason Comments Med Refill Encounter Details Date Type Department Care Team ([facility] st Contact Info) Description 07/17/2024 Refill [facility] MEDICINE [address] [place], [place] [phone] Machelle Johnson MD [address] [place] [address] Social History Tobacco Use Types Packs/Day Years [...] documented as of this encounter Care Teams Software Quality Assurance Engineer Relationship Specialty Start Date End Date Machelle Johnson MD [address] [place] [id number] PCP - General Family Medicine 11/08/21 documented as of this encounter
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
--- OUTSIDE RECORDS SUMMARY | 2025-03-03 23:43 | XMS_ITS | Encounter Summary ---
Author Organization [employer] Address [address] [place] [address] Care Team Providers Care Shuttle Fixer Name Role Phone Machelle Johnson MD Primary Care Provider [phone] Encounter Details Date Type Department Care Team (Late st Contact Info) Description 03/03/2025 Orders Only GENERIC EXTERNAL DATA [...] TROPONIN I Routine 03/03/2025 8:45 PM EDT CBC WITH AUTO DIFFERENTIAL Routine 03/03/2025 8:45 PM EDT COMPREHENSIVE METABOLIC PANEL Routine 03/03/2025 8:45 PM EDT documented in this encounter Results * High Sensitivity Troponin I (03/03/2025 8:45 PM EDT) Pathologist [facility] TROPONIN I HIGH SENSITIVITY <2.7 <3.5 - 17.0 ng/L [facility] Comment:The Ramirez high sens itivity Troponin-I results should beused in conjunction with other diagnostic information suchas ECG, clinical observations and information, and patientsymptoms to aid in the diagnosis of [place]. 03/03/2025 8:45 PM EDT 03/03/2025 8:53 PM EDT us Generic External Data Provider LAB BLOOD ORDERAB LES Final Result [facility] [address], [place] [phone] * Comprehensive Metabolic Panel (03/03/2025 8:45 PM EDT) Pathologist [facility] Sodium 144 135 - 145 mmol/L [facility] Potassium 3.6 3.3 - 5.1 mmol/L [facility] Chloride 108 96 - 108 mmol/L [facility] Carbon Dioxide 28 22 - 29 mmol/L [facility] Anion Gap 12 12 - 20 [facility] Urea Nitrogen (BUN) 10 9 - 16 mg/dL [facility] Creatinine, Serum 0.72 0.5 - 1.4 mg/dL [facility] Creatinine Clr Calc Pharmacy 94.8 [facility] Comment:Provided height and weight: 154.94 cm,49.895 kg.eGFR (calculated from the MDRD study equation) and eCrCl(calculated from the Cockcroft-Gault equation) are based ondifferent parameters and may not yield comparable results.If eCrCl result is absurd, please check patient'sheight/weight. Estimated Glomerular Filt Rate >60 [facility] Comment:Chronic Kidney Disea se: Estimated GFR < 60 mL/min/1.45e9Vooxqv Kidney Disease: Estimated GFR < 15 mL/min/1.73m2 Glucose 84 60 - 115 mg/dL [facility] Calcium 8.4 8.4 - 10.2 mg/dL [facility] Bilirubin, Total 0.4 0.0 - 1.0 mg/dL [facility] Aspartate Amino Transferase 17 5 - 31 U/L [facility] Alanine Aminotransferase 8 0 - 31 U/L [facility] Total Protein 6.7 6.5 - 8.0 g/dL [facility] Albumin Level 4.0 3.5 - 5.0 g/dL [facility] Alkaline Phosphatase 48 39 - 117 U/L [facility] 03/03/2025 8:45 PM EDT 03/03/2025 8:53 PM EDT us Generic External Data Provider LAB BLOOD ORDERAB LES Final Result [facility] [address] [place] [phone] * (ABNORMAL) CBC auto differential (03/03/2025 8:45 PM EDT) White Blood Count 11.3(H) 4.8 - 10.8 X10*3/uL [facility] Red Blood Count 3.71(L) 4.20 - 5.50 X10*6/uL [facility] Hemoglobin 11.5(L) 12.0 - 16.0 g/dl [facility] Hematocrit 34.3(L) 37.0 - 47.0 % [facility] Mean Corpuscular Volume 92.5 80.0 - 98.0 fL [facility] Mean Corpuscular Hemoglobin 31.0 27.0 - 33.0 pg [facility] Mean Corpuscular HGB Conc 33.5 31.0 - 35.0 g/dl [facility] Red Cell Distribution Width 12.8 11.0 - 16.0 % [facility] Platelet Count 321 160 - 400 X10*3/uL [facility] Mean Platelet Volume 8.5(L) 9.4 - 12.3 fL [facility] Neutrophils Percent Auto 63.6 45 - 73 % [facility] Imm Gran Pct Auto 0.4 0.0 - 0.4 % [facility] Lymphocytes Percent Auto 27.0 20 - 40 % [facility] Monocytes Percent Auto 7.9 2 - 11 % [facility] Eosinophils Percent Auto 0.9 0 - 4 % [facility] Basophils Percent Auto 0.2 0 - 2 % [facility] NRBC Pct Auto 0.0 0.0 - 0.2 /100WBC [facility] Neutrophils Absolute Auto 7.2 2.0 - 8.3 x10*3/uL [facility] Imm Gran Abs Auto 0.04(H) 0.00 - 0.03 X10*3/uL [facility] Lymphocytes Absolute Auto 3.0 1.2 - 4.9 X10*3/uL [facility] Monocytes Absolute Auto 0.9 0.1 - 1.2 X10*3/uL [facility] Eosinophils Absolute Auto 0.1 0.0 - 0.4 X10*3/uL [facility] Basophils Absolute Auto 0.0 0.0 - 0.2 X10*3/uL [facility] NRBC Abs Auto 0.000 0.0 - 0.012 X10*3/uL [facility] 03/03/2025 8:45 PM EDT 03/03/2025 8:53 PM EDT us Generic External Data Provider LAB BLOOD ORDERAB LES Final Result [facility] [address] [place] [phone] documented in this encounter Visit Diagnoses Not on filedocumented in this encounter Additional Health Concerns Assessment Noted Time PHQ-9 Depression Total Score: 0 06/08/19 25 3:36 PM EST documented as of this encounter Care Teams Shuttle Fixer Relationship Specialty Start Date End Date Machelle Johnson MD [address] [place] [phone] PCP - General Family Medicine 11/08/21 documented as of this encounter
--- OUTSIDE RECORDS SUMMARY | 2025-03-03 23:43 | XMS_ITS | Encounter Summary ---
Author Organization [employer] Address [address] [facility] [address] [place] [address] Care Team Providers Care Vehicle Mechanic Name Role Phone Machelle Johnson MD Primary Care Provider [phone] Encounter Details Date Type Department Care Team (Late st Contact Info) Description 03/02/2025 Orders Only GENERIC EXTERNAL DATA DEPARTMENT [...] as of this encounter Plan of Treatment Pending Results Name Type Priority Associated Diagnoses Date /Time Blood Culture (First) Microbiology Routine 03/02/2025 7:49 PM EDT Blood Culture (Second) Microbiology Routine 03/02/2025 7:54 PM EDT documented as of this encounter Procedures Procedure Name Priority Date/Time Associated Diagnosis Comments CTA CHEST PE PROTOCAL Routine 03/02/2025 9:58 PM EDT URINALYSIS, COMPLETE, WITH REFLEX TO CULTURE Routine 03/02/2025 9:37 PM EDT DRUG MONITOR, PANEL 1, SCREEN, URINE Routine 03/02/2025 9:37 PM EDT XR CHEST 2 VIEWS Routine 03/02/2025 8:46 PM EDT ETHANOL Routine 03/02/2025 8:37 PM EDT HCG, TOTAL, QN Routine 03/02/2025 8:37 PM EDT MAGNESIUM Routine 03/02/2025 8:37 PM EDT LIPASE Routine 03/02/2025 8:37 PM EDT COMPREHENSIVE METABOLIC PANEL Routine 03/02/2025 8:37 PM EDT D DIMER HIGH SENSITIVITY Routine 03/02/2025 7:54 PM EDT BLOOD CULTURE (SECOND) Routine 7:54 PM EDT CBC WITH AUTO DIFFERENTIAL Routine 03/02/2025 7:54 PM EDT LACTIC ACID Routine 03/02/2025 7:54 PM EDT INFLUENZA A B2 ID NOW (BROWN) Routine 03/02/2025 7:49 PM EDT BLOOD CULTURE (FIRST) Routine 03/02/2025 7:49 PM EDT COVID-19 ID NOW (BROWN) Routine 03/02/2025 7:49 PM EDT HIGH SENSITIVITY TROPONIN I Routine 03/02/2025 7:49 PM EDT NT-PROBNP Routine 03/02/2025 7:49 PM EDT documented in this encounter Results * CTA Chest PE Protocal (03/02/2025 9:58 PM EDT) Anatomical Region Laterality Modality Body, Chest Computed Tomogra phy 03/02/2025 9:58 PM EDT Narrative 03/02/2025 10:00 PM EDT [place] [address] [address] Scan Report Signed Patient: Irene De Jesus MR#: [id number] : 2005 Acct:[id number] Age/Sex: 19 / F ADM Date: 03/02/25 Loc: .ED Attending Dr: Ordering Physician: Fernando Kay MD Date of Service: 03/02/25 Procedure(s): CT angio chest PE protocol Accession Number(s): [id number] cc: Machelle Johnson; Fernando Kay MD Report Number: [id number]: Total DLP = 137.00 mGy-cm Reason for [...] in OV> 03/02/252158 DD/ 57 TD/TT: 03/02/252157 [employer] Prof[employer]als: Procedure Note Donotuseinterpreter, Image - 03/02/[address] [place] [address] [address] Scan Report Signed Patient: Irene De Jesus MMR#: [id number] : 2005cct:[id number] Age/Sex: Date: 03/02/25 Loc: HO.ED Attending Dr: Ordering Physician: Fernando Kay MD Date of Service: 03/02/25 Procedure(s): CT angio chest PE protocol Accession Number(s): [id number] cc: Machelle Johnson; Fernando Kay MD Report Number: [id number]: Total DLP = 137.00 mGy-cm Reason for [...] in OV> 03/02/252158 DD/ 57 TD/TT: 03/02/252157 [employer]: [facility] External Provider IMG CT PROCEDURES Final Result * Drug Monitoring, Panel 1, Screen, Urine (03/02/2025 9:37 PM EDT) Opiate Screen Urine Not Detected Not Detect [facility] Comment:Opiate cut-off is 30 0 ng/mL.Positive results are unconfirmed and should not be used fornon-medical purposes. Barbiturates, Urine Not Detected Not Detect [facility] Comment:Barbiturate cut-off is 200 ng/mL.Positive results are unconfirmed and should not be used fornon-medical purposes. Phencyclidine Screen Urine Not Detected Not Detect [facility] Comment:Phencyclidine cut-of f is 25 ng/mL.Positive results are unconfirmed and should not be used fornon-medical purposes. Amphetamine Screen Urine Not Detected Not Detect [facility] Comment:Amphetamine cut-off is 1000 ng/mL.Positive results are unconfirmed and should not be used fornon-medical purposes. Benzodiazepines Screen Urine Not Detected Not Detect [facility] Comment:Benzodiazepine cut-o ff is 200 ng/mL.Positive results are unconfirmed and should not be used fornon-medical purposes. Cocaine Screen Urine Not Detected Not Detect [facility] Comment:Cocaine cut-off is 3 00 ng/mL.Positive results are unconfirmed and should not be used fornon-medical purposes. Cannabinoid Screen Urine Not Detected Not Detect [facility] Comment:Cannabinoid cut-off is 50 ng/mL.Positive results are unconfirmed and should not be used fornon-medical purposes. Methadone Screen, Urine Not Detected Not Detect ng/mL [facility] Comment:Methadone cut-off is 300 ng/mL.Positive results are unconfirmed and should not be used fornon-medical purposes. FENTANYL URINE Not Detected Not Detect [facility] Comment:Fentanyl cut-off is 1 ng/mL.Positive results are unconfirmed and should not be used fornon-medical purposes. Oxycodone Urine Screen Not Detected Not Detect ng/mL [facility] Comment:Oxycodone cut-off is 100 ng/mL.Positive results are unconfirmed and should not be used fornon-medical purposes. Buprenorphine Screen Not Detected Not Detect ng/mL [facility] Comment:Buprenorphine cut-of f is 5 ng/mL.Positive results are unconfirmed and should not be used fornon-medical purposes. 03/02/2025 9:37 PM EDT 03/02/2025 9:40 PM EDT us Generic External Data Provider LAB URINE ORDERAB LES Final Result [facility] [address] [place] [phone] * (ABNORMAL) Urinalysis, Complete, with Reflex to Culture (03/02/2025 9:37 PM EDT) Color Urine Yellow [facility] Appearance Urine Clear [facility] PH 6.5 5.0 - 9.0 [facility] Glucose Urine UA Negative Negative mg/dL [facility] Urine Blood Negative Negative [facility] Specific [place] - Urine >=1.030(H) 1.005 - 1.025 [facility] Urine Protein Negative Neg-Trace mg/dL [facility] Urine Ketones Negative Negative mg/dL [facility] Nitrite Urine Negative Negative [facility] Leukocyte Esterase Urine Negative Negative [facility] RBC Urine 0-2 0 - 2 /HPF [facility] Urine WBC 0-5 0 - 5 /HPF [facility] Urine Squamous Epithelial Cell 6-10 0 - 2 /HPF [facility] Urine Bacteria 2+ None Seen [facility] Hyaline Casts, Urine 0-2 0 - 2 /LPF [facility] 03/02/2025 9:37 PM EDT 03/02/2025 9:40 PM EDT Narrative [facility] - 03/02/2025 9:46 PM EDT [id number], Clean C[employer] us Generic External Data Provider LAB URINE ORDERAB LES Final Result [facility] [address] [place] [phone] * XR Chest 2 Views (03/02/2025 8:46 PM EDT) Anatomical Region Laterality Modality Chest Radiographic Joleen ging 03/02/2025 8:46 PM EDT Narrative 03/02/2025 8:47 PM EDT [place] [address] XRay Report Signed Patient: Irene De Jesus MR#: [id number] : 2005 Acct:[id number] Age/Sex: 19 / F ADM Date: 03/02/25 Loc: .ED Attending Dr: Ordering Physician: Nolberto Colvin Date of Service: 03/02/25 Procedure(s): XR chest 2V Accession Number(s): [id number] cc: Machelle Johnson; Nolberto Colvin Reason for [...] in OV> 03/02/252045 DD/ 45 TD/TT: 03/02/252045 [employer]: Procedure Note Donkristopherinterpreter, Image - 03/02/2025 [place] [address] XRay Report Signed Patient: Irene De Jesus MMR#: [id number] : 2005cct:[id number] Age/Sex: 19 / FADM Date: 03/02/25 Loc: HO.ED Attending Dr: Ordering Physician: Nolberto Colvin Date of Service: 03/02/25 Procedure(s): XR chest 2V Accession Number(s): [id number] cc: Machelle Johnson; Nolberto Colvin Reason for [...] in OV> 03/02/252045 DD/ 45 TD/TT: 03/02/252045 [employer]: [facility] External Provider IMG XR PROCEDURES Final Result * Ethanol (03/02/2025 8:37 PM EDT) ETHANOL (MG/DL) IN SER/PLAS <10 mg/dL [facility] Comment:Serum/plasma ethanol results are to be used formedical/treatment purposes only. 03/02/2025 8:37 PM EDT 03/02/2025 8:39 PM EDT Generic External Data Provider LAB BLOOD ORDERAB LES Final Result [facility] [address] [place] [phone] * hCG, Total, Quantitative (03/02/2025 8:37 PM EDT) HCG Quantitative <2 mIU/mL [facility] Comment:Weeks post LMP Appro ximate hCG(Last Menstrual Period) Range (mIU/ml)3 - 4 weeks 9 - 1304 - 5 weeks 75 - 2,6005 - 6 weeks 850 - 20,8006 - 7 weeks 4000 - 100,2007 - 12 weeks 11,500 - 289,34326 - 16 weeks 18,300 - 137,63320 - 29 weeks (2nd trimester) 1,400 - 53,44607 - 41 weeks (3rd trimester) 940 - [...] ORDERAB LES Final Result Performing Organization Address [facility] de Phone Number [facility] [address] [place] [phone] * Lipase (03/02/2025 8:37 PM EDT) Lipase 12 8 - 78 U/L [facility] 03/02/2025 8:37 PM EDT 03/02/2025 8:39 PM EDT Generic External Data Provider LAB BLOOD ORDERAB LES Final Result Performing Organization Address [facility] de Phone Number [facility] [address] [place] [phone] * Magnesium (03/02/2025 8:37 PM EDT) Magnesium 1.7 1.6 - 2.6 mg/dL [facility] 03/02/2025 8:37 PM EDT 03/02/2025 8:39 PM EDT Generic External Data Provider LAB BLOOD ORDERAB LES Final Result Performing Organization Address [facility] Co de Phone Number [facility] [address] [place] [phone] * Comprehensive Metabolic Panel (03/02/2025 8:37 PM EDT) Sodium 138 135 - 145 mmol/L [facility] Potassium 3.6 3.3 - 5.1 mmol/L [facility] Chloride 106 96 - 108 mmol/L [facility] Carbon Dioxide 24 22 - 29 mmol/L [facility] Anion Gap 12 12 - 20 [facility] Urea Nitrogen (BUN) 10 9 - 16 mg/dL [facility] Creatinine, Serum 0.65 0.5 - 1.4 mg/dL [facility] Creatinine Clr Calc Pharmacy 102.9 [facility] Comment:Provided height and weight: 154.94 cm,46.8 kg.eGFR (calculated from the MDRD study equation) and eCrCl(calculated from the Cockcroft-Gault equation) are based ondifferent parameters and may not yield comparable results.If eCrCl result is absurd, please check patient'sheight/weight. Estimated Glomerular Filt Rate >60 [facility] Comment:Chronic Kidney Disea se: Estimated GFR < 60 mL/min/1.54g0Bqzbju Kidney Disease: Estimated GFR < 15 mL/min/1.73m2 Glucose 94 60 - 115 mg/dL [facility] Calcium 9.1 8.4 - 10.2 mg/dL [facility] Bilirubin, Total 0.5 0.0 - 1.0 mg/dL [facility] Aspartate Amino Transferase 20 5 - 31 U/L [facility] Alanine Aminotransferase 7 0 - 31 U/L [facility] Total Protein 7.7 6.5 - 8.0 g/dL [facility] Albumin Level 4.7 3.5 - 5.0 g/dL [facility] Alkaline Phosphatase 54 39 - 117 U/L [facility] 03/02/2025 8:37 PM EDT 03/02/2025 8:39 PM EDT us Generic External Data Provider LAB BLOOD ORDERAB LES Final Result Performing Organization Address [facility] Co de Phone Number [facility] [address] [place] [phone] * Lactic Acid (03/02/2025 7:54 PM EDT) [facility] Lactic Acid 1.5 0.5 - 2.0 mmol/L [facility] 03/02/2025 7:54 PM EDT 03/02/2025 7:58 PM EDT Generic External Data Provider LAB BLOOD ORDERAB LES Final Result Performing Organization Address [facility] Phone Number [facility] [address] [place] [address] [phone] * D Dimer High Sensitivity (03/02/2025 7:54 PM EDT) [facility] D Dimer High Sensitivity 265 NG/ML [facility] Comment:D-DIMER HS REFERENCE RANGENote: Our assay [...] ORDERAB LES Final Result Performing Organization Address [facility] Co de Phone Number [facility] [address] [place] [address] [phone] * (ABNORMAL) CBC auto differential (03/02/2025 7:54 PM EDT) [facility] White Blood Count 21.4(H) 4.8 - 10.8 X10*3/uL [facility] Red Blood Count 4.46 4.20 - 5.50 X10*6/uL [facility] Hemoglobin 14.0 12.0 - 16.0 g/dl [facility] Hematocrit 40.9 37.0 - 47.0 % [facility] Mean Corpuscular Volume 91.7 80.0 - 98.0 fL [facility] Mean Corpuscular Hemoglobin 31.4 27.0 - 33.0 pg [facility] Mean Corpuscular HGB Conc 34.2 31.0 - 35.0 g/dl [facility] Red Cell Distribution Width 12.7 11.0 - 16.0 % [facility] Platelet Count 381 160 - 400 X10*3/uL [facility] Mean Platelet Volume 8.2(L) 9.4 - 12.3 fL [facility] Neutrophils Percent Auto 84.8(H) 45 - 73 % [facility] Imm Gran Pct Auto 0.4 0.0 - 0.4 % [facility] Lymphocytes Percent Auto 8.6(L) 20 - 40 % [facility] Monocytes Percent Auto 5.9 2 - 11 % [facility] Eosinophils Percent Auto 0.1 0 - 4 % [facility] Basophils Percent Auto 0.2 0 - 2 % [facility] NRBC Pct Auto 0.0 0.0 - 0.2 /100WBC [facility] Neutrophils Absolute Auto 18.2(H) 2.0 - 8.3 x10*3/uL [facility] Imm Gran Abs Auto 0.09(H) 0.00 - 0.03 X10*3/uL [facility] Lymphocytes Absolute Auto 1.9 1.2 - 4.9 X10*3/uL [facility] Monocytes Absolute Auto 1.3(H) 0.1 - 1.2 X10*3/uL [facility] Eosinophils Absolute Auto 0.0 0.0 - 0.4 X10*3/uL [facility] Basophils Absolute Auto 0.0 0.0 - 0.2 X10*3/uL [facility] NRBC Abs Auto 0.000 0.0 - 0.012 X10*3/uL [facility] 03/02/2025 7:54 PM EDT 03/02/2025 7:58 PM EDT us Generic External Data Provider LAB BLOOD ORDERAB LES Final Result Performing Organization Address [facility] Co de Phone Number [facility] [address] [place] [phone] * NT-proBNP (03/02/2025 7:49 PM EDT) NT-proBNP <15.8 <300 pg/mL [facility] Comment:Reference Range:Age Group (years) NT-proBNP (pg/ml) InterpretationAll <300 Negative: HF unlikelyFor patients presenting to the ED with clinical suspicion ofnew onset or worsening HF, see below:18 to <50 >299.9 to <450.0 Grayzone: [id number] to 75 >299.9 to <900.0 other causes of>75 >299.9 to <1800.0 NT-proBNP snnunztnn89 to <50 >449.9 Positive: HF -98 >899.9>75 >1799.9Note: Elevated NT-proBNP levels should be interpreted inthe context of other clinical information. 03/02/2025 7:49 PM EDT 03/02/2025 7:52 PM EDT us Generic External Data Provider LAB BLOOD ORDERAB LES Final Result Performing Organization Address [facility] Co de Phone Number [facility] [address] [place] [address] [phone] * High Sensitivity Troponin I (03/02/2025 7:49 PM EDT) TROPONIN I HIGH SENSITIVITY <2.7 <3.5 - 17.0 ng/L [facility] Comment:The Brown high sens itivity Troponin-I results should beused in conjunction with other diagnostic information suchas ECG, clinical observations and information, and patientsymptoms to aid in the diagnosis of SD. 03/02/2025 7:49 PM EDT 03/02/2025 7:52 PM EDT us Generic External Data Provider LAB BLOOD ORDERAB LES Final Result Performing Organization Address [facility] Co de Phone Number [facility] [address] [place] [phone] * Influenza A B2 ID NOW (Brown) (03/02/2025 7:49 PM EDT) IDNOW SERIAL# [id number] [facility] Influenza A Negative Negative [facility] Influenza B2 Negative Negative [facility] Influenza A B2 Note See Note [facility] Comment:The Brown ID NOW In fluenza [...] GENERAL ORDERABLES Final Result Performing Organization Address [facility] Co de Phone Number [facility] [address] [place] [phone] * COVID-19 ID NOW (BROWN) (03/02/2025 7:49 PM EDT) IDNOW SERIAL# [id number] [facility] COVID-19 TEST Negative Negative [facility] COVID-19 NOTE See Note [facility] Comment: Results are for the identification of SARS-CoV2 RNA. TheSARS-CoV2 RNA is generally detectable in respiratory samplesduring the acute phase of infection. Positive results areindicative of the presence of SARS-CoV-2 RNA; clinicalcorrelation with patient history and other diagnosticinformation is necessary to determine patient infectionstatus. Positive results do not rule out bacterial infectionor co- infection with other viruses.Testing facilities within the [place] and [facility] are required to report all positive results [...] use by authorized laboratories.Testing performed on the Perceptive Pixel ID NOW utilizing NAAT. 03/02/2025 7:49 PM EDT 03/02/2025 7:52 PM EDT us Generic External Data Provider LAB MOLECULAR MIG[employer] ORDERABLES Final Result [facility] [address] [place] [address] [phone] documented in this encounter Visit Diagnoses Not on filedocumented in this encounter Additional Health Concerns Assessment Noted Time PHQ-9 Depression Total Score: 0 06/08/19 25 3:36 PM EST documented as of this encounter Care Teams Vehicle Mechanic Relationship Specialty Start Date End Date Machelle Johnson MD [address] [place] [phone] PCP - General Family Medicine 11/08/21 documented as of this encounter
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
[2025-03-03 23:49] VITALS: BP 95/61; PULSE 76; RESP 16; TEMP 37.3; O2SAT 99
--- NOTE | 2025-03-04 00:14 | ED.GENADULT ---
HPI - General Adult General Chief complaint: Abdominal Pain Stated complaint: lwr left abd pain/was here 03/02 Time Seen by Provider: 03/03/25 23:16 Source: patient Limitations: no limitations History of Present Illness ED Provider: Caty Maza PA-C HPI narrative: 19-year-old otherwise healthy female presents with abdominal pain. Pain over left mid abdomen, described as stabbing sensation at times. Denies nausea vomiting diarrhea or constipation no fever. No dysuria, no hematuria no history of kidney stones. The patient was seen here yesterday diagnosed with viral syndrome, she had extensive workup for chest pain as well. Related Data Previous Rx's ?Medication ?Instructions ?Recorded ibuprofen 100 mg/5 mL oral 400 mg (20 mL) PO Q8H PRN fever or 03/03/25 suspension (Children's Ibuprofen) pain #473 mL Allergies Allergy/AdvReac Type Severity Reaction Status Date / Time strawberry Allergy Unknown Verified 03/03/25 20:24 Review of Systems Review of Systems: Yes all other systems are reviewed and are negative Constitutional: Constitutional: Denies fatigue and Denies fever(s) Cardiovascular: Cardiovascular: Denies chest pain and Denies dyspnea Respiratory: Respiratory: Denies cough and Denies dyspnea Gastrointestinal: Gastrointestinal: Reports abdominal pain, Denies constipation, Denies diarrhea, Denies nausea and Denies vomiting Genitourinary: Genitourinary: Denies hematuria, Denies dysuria and Denies flank pain Musculoskeletal: Musculoskeletal: Denies back pain Endocrine: Endocrine: Denies fatigue PMF Past Medical History Attestation statement: The following information was validated with the patient. 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 Physical Exam ED Vital Signs: Vital Signs - 24 hr 03/03/25 20:22 03/03/25 23:49 03/04/25 00:37 Temperature 97.3 F 99.1 F 99.1 F Pulse Rate 95 76 76 Respiratory Rate 20 16 16 Blood Pressure 112/72 95/61 95/61 Pulse Oximetry 100 99 99 Oxygen Delivery Method Room Air Room Air Room Air BMI result Body Mass Index 20.8 Const Other: Alert well-appearing Orientation/consciousness: patient oriented x3 Resp Effort & Inspection: normal respiratory effort Cardio Other: Normal peripheral perfusion GI Other: Abdomen is soft, nondistended, nontender with deep palpation no guarding Skin Other: Warm dry no rash Neuro General: patient oriented x3, gait normal, no focal motor deficits and CN's II-XI intact bilaterally Psych Other: Cooperative Medical Decision Making Medical Decision Making MDM Narrative: 19-year-old otherwise healthy female presents with abdominal pain. Pain over left mid abdomen, described as stabbing sensation at times. Denies nausea vomiting diarrhea or constipation no fever. No dysuria, no hematuria no history of kidney stones. The patient was seen here yesterday diagnosed with viral syndrome, she had extensive workup for chest pain as well. No chronic issues History: Per patient I have considered the following differential diagnoses: Constipation, pancreatitis, diverticulitis, renal colic, pyelonephritis Plan: Patient here with nonspecific mid abdominal pain with a benign exam, unremarkable labs, and no associated or GI symptoms. I am adding on a KUB, likely constipation. I have independently reviewed the following tests: Labs: Leukocytosis of 11, markedly dropped since yesterday when it was 21, Not anemic, no electrolyte abnormality KUB:Findings: Moderate stool burden. No bowel obstruction. No pneumoperitoneum or pneumatosis. No abnormal calcifications. No acute fractures. IMPRESSION: Moderate stool burden. No bowel obstruction. Differential Diagnosis Differential Diagnoses: The differential diagnosis associated with the presentation includes See medical decision-making Admission/Observation Consideration of admission/observation: Escalation of care including admission/observation considered Not applicable Lab Data [facility] Lab Attestation statement: I reviewed the patient's lab results. 03/03/25 20:45 03/03/25 20:45 Labs: Lab Results 03/03/25 Range/Units 20:45 WBC 11.3 H (4.8-10.8) X10*3/uL RBC 3.71 L (4.20-5.50) X10*6/uL Hgb 11.5 L (12.0-16.0) g/dl Hct 34.3 L (37.0-47.0) % MCV 92.5 (80.0-98.0) fL MCH 31.0 (27.0-33.0) pg MCHC 33.5 (31.0-35.0) g/dl RDW 12.8 (11.0-16.0) % Plt Count 321 (160-400) X10*3/uL MPV 8.5 L (9.4-12.3) fL Immature Gran % (Auto) 0.4 (0.0-0.4) % Neut % (Auto) 63.6 (45-73) % Lymph % (Auto) 27.0 (20-40) % [place] % (Auto) 7.9 (2-11) % Eos % (Auto) 0.9 (0-4) % Baso % (Auto) 0.2 (0-2) % Lymph # (Auto) 3.0 (1.2-4.9) X10*3/uL [place] # (Auto) 0.9 (0.1-1.2) X10*3/uL Eos # (Auto) 0.1 (0.0-0.4) X10*3/uL Baso # (Auto) 0.0 (0.0-0.2) X10*3/uL Abs Immat Gran (auto) 0.04 H (0.00-0.03) X10*3/uL Absolute Neuts (auto) 7.2 (2.0-8.3) x10*3/uL Absolute Nucleated RBC 0.000 (0.0-0.012) X10*3/uL Nucleated RBC % (auto) 0.0 (0.0-0.2) /100WBC Sodium 144 (135-145) mmol/L Potassium 3.6 (3.3-5.1) mmol/L Chloride 108 (96-108) mmol/L Carbon Dioxide 28 (22-29) mmol/L Anion Gap 12 (12-20) BUN 10 (9-16) mg/dL Creatinine 0.72 (0.5-1.4) mg/dL Estim Creat Clear Calc 94.8 Estimated GFR > 60 Random Glucose 84 (60-115) mg/dL Calcium 8.4 D (8.4-10.2) mg/dL Total Bilirubin 0.4 (0.0-1.0) mg/dL AST 17 (5-31) U/L ALT 8 (0-31) U/L Alkaline Phosphatase 48 (39-117) U/L Troponin I High Sens < 2.7 (<3.5-17.0) ng/L Total Protein 6.7 (6.5-8.0) g/dL Albumin 4.0 (3.5-5.0) g/dL Beta HCG, Quant < 2 mIU/mL Radiology Impression Discussion of test interpretation with radiology: I have reviewed the radiologist's reading. Discharge Plan Discharge Clinical Impression: Constipation Patient Disposition: Home, Self-Care Instructions: Constipation (ED) Additional Instructions: You were found to be considerably constipated. This is the reason why you are having abdominal discomfort. See home care instructions. You need to implement an aggressive bowel regimen to help clear your current stool burden. Use [id number] Colace this is a stool softener twice a day. Use [id number]-[id number]-latvece MiraLax multiple times a day, 4-5, until you begin having multiple large volume bowel movements. All of your screening labs are much improved since yesterday. Prescriptions: No Action ibuprofen [Children's Ibuprofen] 100 mg/5 mL suspension 400 mg PO Q8H PRN (Reason: fever or pain) Qty: 473 0RF Interventions: ED Discharge Assessment Last Done: 03/04/25 00:37 Discharge Date/Time: 03/04/25 00:37 Print Language: Slovenian
[2025-03-04 00:37] VITALS: BP 95/61; PULSE 76; RESP 16; TEMP 37.3; O2SAT 99
== END 2025-03-04 00:37 | disposition home or self-care (01) ==
PROVIDERS: Physician Assistant Medical; Emergency Provider Emergency Medicine; PCP General Practice
DX: R10.32 Left lower quadrant pain (principal); K59.00 Constipation, unspecified; R07.9 Chest pain, unspecified; R94.31 Abnormal electrocardiogram [ECG] [EKG]
CPT/HCPCS: 36415; 74018; 80053; 84484; 84702; 85025; 93005; 99283; 99284

== ENCOUNTER → 2025-03-03 20:40 | Outpatient (BNV) | payer MEDICAID, SELFPAY | PROVIDERS: Emergency Provider Emergency Medicine; PCP General Practice; Visit Provider Internal Medicine Cardiovascular Disease | DX: R94.31 Abnormal electrocardiogram [ECG] [EKG] (principal); R07.9 Chest pain, unspecified | CPT/HCPCS: 93010 ==

== ENCOUNTER → 2025-03-03 23:21 | Outpatient (BNV) | payer MEDICAID, SELFPAY | PROVIDERS: Emergency Provider Emergency Medicine; PCP General Practice; Visit Provider Radiology Diagnostic Radiology | DX: R10.9 Unspecified abdominal pain (principal) | CPT/HCPCS: 74018 ==

== ENCOUNTER 2025-04-22 14:09 | Emergency (ER) | payer MEDICAID, SELFPAY ==
[2025-04-22 14:18] VITALS: BP 111/76; PULSE 95; RESP 18; TEMP 36.7; O2SAT 98; BMI 19.3
--- NOTE | 2025-04-22 14:18 | ED_ITS ---
HPI - Allergic Reaction General Chief complaint: Allergic Reaction Stated complaint: allergic reaction Time Seen by Provider: 04/22/25 15:23 Source: patient Mode of arrival: ambulatory Limitations: no limitations History of Present Illness ED Provider: Dr. Florez HPI narrative: 19-year-old female presented hospital today for allergic reaction. Patient stated that she placed hydrocortisone cream on her arms where she broke out in hives. Denies any wheezing. She was complaining of sensation in her throat. Related Data Previous Rx's ?Medication ?Instructions ?Recorded ibuprofen 100 mg/5 mL oral 400 mg (20 mL) PO Q8H PRN f ever or 03/03/25 suspension (Children's Ibuprofen) pain #473 mL epinephrine 0.3 mg/0.3 mL 0.3 mg (0.3 mL) IM Q10M PRN 04/22/25 injection, auto-injector (EpiPen anaphylaxis #2 ea 2-Raffaele) Allergies Allergy/AdvReac Type Severity Reaction Status Date / Time strawberry Allergy Unknown Verified 04/22/25 14:22 Review of Systems Review of Systems: Pertinent review of systems as mentioned in HPI. All other system otherwise negative. [facility] Past Medical History [facility] Narrative: None Medical History (Updated 04/22/25 @ 15:54 by Margy Florez DO) Seasonal allergies Surgical History (Updated 04/30/24 @ 14:52 by ZHANE Tracy) Hx of eye surgery Social History Social History (Updated 04/30/24 @ 14:53 by ZHANE Tracy) Patient Tobacco Use Status: Never used Tobacco Smoked in Last 30 Days: No Use of substances other than those prescribed or required for medical reasons: No Advance Directives: No Advance Directives Information Provided: No Patient : No Current occupational status: employed 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 Physical Exam ED Exam Exam: General: Pleasant, no distress, interacting appropriately Head: Normacephalic, atraumatic ENT: oral mucosa moist, neck supple, no tracheal deviation Cardiovascular: regular rate, regular rhythm, no murmurs, rubbing, gallops Respiratory: CTAB, no wheeze, rales, rhonchi Gastrointestinal: Soft, non distended, non tender, non guarding Neurological: Awake and alert, no facial droop noted Skin: Warm and dry, no hives Psychiatric: Appropriate mood and thoughts Vital Signs: Vital Signs - 24 hr 04/22/25 14:18 04/22/25 15:56 04/22/25 17:13 Temperature 98.1 F 98.3 F 98.1 F Pulse Rate 95 70 68 Respiratory Rate 18 16 14 Blood Pressure 111/76 104/65 114/65 Pulse Oximetry 98 100 100 Oxygen Delivery Method Room Air Room Air Room Air 04/22/25 17:15 Temperature 98.1 F Pulse Rate 68 Respiratory Rate 14 Blood Pressure 114/65 Pulse Oximetry 100 Oxygen Delivery Method Room Air BMI result Body Mass Index 19.3 Course Course Course Narrative: This is an RME: Additional HPI, ROS, PE not included below will be deferred to primary provider. RME assessment and note performed by: Thalia Reagan PA-C This is a 26-huzp-pdy-female who presents to the ER with concerns of allergic rxn. Airway widely patent. Reports itchiness throughout her entire body. Lungs CTA. Patient reporting a sensation in her throat, no stridor. No trismus, drooling, or dysphonia. Plan: Patient to be brought back, meds ordered Medications Administered Discontinued Medications Generic Name Dose Route Start Last Admin Trade Name Freq PRN Reason Stop Dose Admin Diphenhydramine HCl 25 mg 04/22/25 14:32 04/22/25 15:29 Diphenhydramine Hcl 50 Mg/Ml Vial IVPUSH 04/22/25 14:33 25 mg ONCE ONE Administration Famotidine 20 mg 04/22/25 14:32 04/22/25 15:34 Famotidine/Pf 20 Mg/2 Ml Vial IVPUSH 04/22/25 14:33 20 mg ONCE ONE Administration Methylprednisolone Sodium Succinate 60 mg 04/22/25 14:32 04/22/25 15:26 Methylprednisolone Sod Succ 125 Mg/2 Ml Vial IVPUSH 04/22/25 14:33 60 mg ONCE ONE Administration Medical Decision Making Medical Decision Making MDM Narrative: 19-year-old female presented hospital today for evaluation of allergic reaction to her arms bilaterally. Patient was given IV Pepcid IV Benadryl, IV Solu-Medrol was given to the patient. Continue to observe the patient's here. She stated that her hives has improved. We will plan to discharge patient at this time. Differential Diagnosis Differential Diagnoses: The differential diagnosis associated with the presentation includes Allergic reaction, anaphylaxis, urticaria Discharge Plan Discharge Clinical Impression: Allergic reaction Qualifiers: Encounter type: initial encounter Qualified Code(s): T78.40XA - Allergy, unspecified, initial encounter Patient Disposition: Home, Self-Care Instructions: General Allergic Reaction (ED) Additional Instructions: Follow up with primary care doctor for your allergic reaction. Prescriptions: New epinephrine [EpiPen 2-Raffaele] 0.3 mg/0.3 mL auto-injector 0.3 mg IM Q10M PRN (Reason: anaphylaxis) Qty: 2 0RF Rx Instructions: for 2 doses No Action ibuprofen [Children's Ibuprofen] 100 mg/5 mL suspension 400 mg PO Q8H PRN (Reason: fever or pain) Qty: 473 0RF Stand Alone Forms: Work/School Release Interventions: ED Discharge Assessment Last Done: 04/22/25 17:15 Discharge Date/Time: 04/22/25 17:19 Print Language: [place] Islander
[2025-04-22 15:56] VITALS: BP 104/65; PULSE 70; RESP 16; TEMP 36.8; O2SAT 100
[2025-04-22 17:13] VITALS: BP 114/65; PULSE 68; RESP 14; TEMP 36.7; O2SAT 100
[2025-04-22 17:15] VITALS: BP 114/65; PULSE 68; RESP 14; TEMP 36.7; O2SAT 100
== END 2025-04-22 17:19 | disposition home or self-care (01) ==
PROVIDERS: Emergency Provider Student in an Organized Health Care Education/Training Program; PCP General Practice
DX: L50.0 Allergic urticaria (principal)
CPT/HCPCS: 96374; 96375; 99284; J1200; J1308; J2919